=== PATIENT | male | born 1960 | race Two or more races ===

== ENCOUNTER 2020-05-03 06:09 | Day surgery (SDC) | payer OTHER ==
[2020-05-03] VITALS (9 sets, daily range): BP systolic 111–133; BP diastolic 70–77
[~2020-05-03] VITALS: Ht 167.6 cm; Wt 95.3 kg
[~2020-05-03 06:09] MED LIST: AMLODIPINE BESYL5 MG ORAL; IBUPROFEN600 M1 ORAL; MINOCYCLINE HC100 MG PO; PRILOSEC OTC20 MG ORAL; XANAX0.5 MG ORAL
--- NOTE | 2020-05-03 06:54 | Anethesia Preoperative Eval ---
Anesthesia Pre-op PMH/ROS General Date of Evaluation: May 03, 2020 Time of Evaluation: 06:50 Anesthesiologist: dorothy ASA Score: ASA 3 Mallampati Score Class I : Soft palate, uvula, fauces, pillars visible Class II: Soft palate, uvula, fauces visible Class III: Soft palate, base of uvula visible Class IV: Only hard plate visible Mallampati Classification: Class II Surgeon: anuj Diagnosis: gerd Surgical Procedure: egd Anesthesia History: none Social History: smoking - former smoker Family History: no anesthesia problems Allergies: Coded Allergies: No Known Allergies (Unverified , 04/28/20) Medications: see eMAR Patient NPO?: Yes Past Medical History Cardiovascular: Reports: HTN Gastrointestinal/Genitourinary: Reports: GERD Neurologic/Psychiatric: Reports: other - headache Hematology/Immune: Reports: other - covid-19 not detected Musculoskeletal/Integumentary: Reports: other - back pain Anesthesia Pre-op Phys. Exam Physician Exam Last Vital Signs Date Time Temp Pulse Resp B/P (MAP) Pulse Ox O2 Delivery O2 Flow Rate FiO2 05/03/20 06:34 97.3 67 18 133/77 99 Room Air Constitutional: NAD Neurologic: CN 2-12 intact Cardiovascular: RRR Respiratory: CTA Gastrointestinal: S/NT/ND Airway Exam Mallampati Score: Class II MO: limited Neck: flexible TMD: 2fb ROM: limited Anesthesia Pre-op A/P Labs Microbiology Date/Time Source Procedure Growth Status 04/29/20 05:45 Nasopharynx Coronavirus COVID-19 PCR ([facility]) - Final Complete Risk Assessment & Plan Assessment: asa3 Plan: mac Status Change Before Surgery: No Pre-Antibiotics Drug: Eda Clifford MD May 03, 2020 06:54
[2020-05-03] MEDS ORDERED: Atropine Inj 1mg/10ml Syr IVP PRN (07:00)
[2020-05-03] MEDS ORDERED: DiphenhydrAMINE 50mg/ml Inj IVP PRN (07:00)
[2020-05-03] MEDS ORDERED: LR 1000ml 1,000 ML IVLG SCH ×2 (07:00)
[2020-05-03] MEDS ORDERED: fentaNYL 100 mcg/2 mL IV PRN (07:00)
[2020-05-03] MEDS ORDERED: Midazolam 2mg/2ml Inj IVP PRN (07:00)
--- NOTE | 2020-05-03 07:20 | Short Stay Surgery H&P ---
History of Present Illness History of Present Illness Chief Complaint Abdominal pains and GERDs HPI Raul Scherer is a 59 year old male who was admitted on for GERD and abdominal pains Patient History Allergies: Coded Allergies: No Known Allergies (Unverified , 04/28/20) PAST MEDICAL HISTORY: (1) Crohns disease of small intestine (2) Hypertension (3) History of knee surgery Medication History Scheduled Amlodipine Besylate* (Amlodipine Besylate*), 5 MG ORAL DAILY, (Reported) Minocycline Hcl (Minocycline Hcl), 100 MG PO DAILY, (Reported) Omeprazole Magnesium (Prilosec Otc), 20 MG ORAL DAILY, (Reported) Scheduled PRN Ibuprofen* (Motrin*), 800 MG ORAL Q6H PRN for FOR PAIN, (Reported) Miscellaneous Medications Alprazolam* (Xanax*), 0.5 MG ORAL, (Reported) Review of Systems Cardiovascular: Reports: hypertension Respiratory: Reports: no symptoms Skeletal: Reports: trauma Gastrointestinal: Reports: gastro esophageal reflux disease Genitourinary: Reports: no symptoms Neurologic: Reports: no symptoms Endocrine: Reports: no symptoms Hematologic: Reports: no symptoms Physical Exam Vital Signs Last Vital Signs Date Time Temp Pulse Resp B/P (MAP) Pulse Ox O2 Delivery O2 Flow Rate FiO2 05/03/20 06:34 97.3 67 18 133/77 99 Room Air Skin: normal HENT: normal Heart: normal Lungs: normal Abdomen: abnormal Extremities: normal Genitourinary: normal Plan Plan of Care Upper Gi endoscopy with biopsy. Preop Interventions None. Summary of Findings See the reports Attestation Are the patient's medical conditions optimized for surgery? Attestation Response: yes Neli Shanks MD May 03, 2020 07:20
--- NOTE | 2020-05-03 07:21 | Pre-Procedure Note/Attestation ---
Pre-Procedure Note/Attestation Complete Prior to Procedure Planned Procedure: left Procedure Narrative: Examination of the Upper GI.tract via endoscopy and obtaining biopsies. Indications for Procedure Pre-Operative Diagnosis: R/O Gastritis, peptic ulcer, esophagitis. Attestation I attest that I discussed the nature of the procedure; its benefits; risks and complications; and alternatives (and the risks and benefits of such alternatives), prior to the procedure, with the patient (or the patient's legal international account representative). I attest that, if there was a reasonable possibility of needing a blood transfusion, the patient (or the patient's legal international account representative) was given the [facility] standardized written summary, pursuant to the Gregorio Angel Blood Safety Act ([place] Health and Safety Code # 1645, as amended). I attest that I re-evaluated the patient just prior to the surgery and that there has been no change in the patient's H&P, except as documented below: Neli Shanks MD May 03, 2020 07:21
[2020-05-03] MEDS ORDERED: LR 1000ml ONE (07:30)
[2020-05-03] MEDS ORDERED: Lidocaine 1% MPF 10mg/ml 5ml ONE (07:30)
--- NOTE | 2020-05-03 08:04 | Endoscopy Procedure Note ---
Endoscopy Procedure Note General Indication for Procedure: Abdomina/epigastric pain/GERDs Procedures Performed: EGD - mild inflammatory process in antral area consistent with minimal antritis; otherwise normal upper GI. endoscopy. Biopsies obtained from antrum and gastric body. Specimen: yes Pt Tolerated Procedure Well: Yes Estimated Blood Loss: none Anesthesia Anesthesiologist: Dr. Zapata Anesthesia: moderate sedation Medications Medication Given: see anesthesia record Inserted Devices Implant(s) used?: No Quality Quality of Bowel Preparation: Excellent Was there any complications?: No GI Core Measures 50 yrs or older w/o bx or poly: Not Applicable 10yrs. F/U recommended: Not Applicable If not recommended, why?: Med reason:<3 yrs.: System Reason:<3 yrs.: Neli Shanks MD May 03, 2020 08:04
--- NOTE | 2020-05-03 08:05 | Discharge Instructions ---
Discharge Instructions Discharge Instructions Follow up with: No follow up needed in office. Call to get printed report. For Congestive Heart Failure Reminder Report to your physician any weight gain of 5 pounds or more in one week. Neli Shanks MD May 03, 2020 08:05
--- NOTE | 2020-05-03 08:22 | Immediate Post-Op Evaluation ---
Immediate Post-Op Evalulation Immediate Post-Op Evalulation Procedure: egd w/bx Date of Evaluation: May 03, 2020 Time of Evaluation: 08:21 IV Fluids: 400ml lr Blood Products: none Estimated Blood Loss: negligible Blood Pressure Systolic: 113 Blood Pressure Diastolic: 71 Pulse Rate: 72 Respiratory Rate: 18 O2 Sat by Pulse Oximetry: 100 Temperature (Fahrenheit): 97.8 Pain Score (1-10): 0 Nausea: No Vomiting: No Complications none Patient Status: awake, reacts, patent Hydration Status: adequate Drug: Eda Clifford MD May 03, 2020 08:22
--- NOTE | 2020-05-03 08:23 | 48 Hour Post Anesthesia Eval ---
Post Anesthesia Evaluation Procedure: egd w/bx Date of Evaluation: May 03, 2020 Time of Evaluation: 08:22 Blood Pressure Systolic: 112 0: 73 Pulse Rate: 65 Respiratory Rate: 18 Temperature (Fahrenheit): 97.8 O2 Sat by Pulse Oximetry: 100 Airway: patent Nausea: No Vomiting: No Pain Intensity: 0 Hydration Status: adequate Cardiopulmonary Status: stable Mental Status/LOC: patient returned to baseline Post-Anesthesia Complications: none Follow-up care needed: N/A Eda Zapata MD May 03, 2020 08:23
--- NOTE | 2020-05-03 08:59 | Operative Note - Dictated ---
DATE OF OPERATION: 05/03/2020 SURGEON: Neli Shanks MD. PROCEDURE: Esophagogastroduodenoscopy with biopsy. PREOPERATIVE DIAGNOSIS: Epigastric pain, question of etiology rule out NSAID-induced gastropathy, peptic ulcer disease, esophagitis, gastritis, duodenitis. POSTOPERATIVE DIAGNOSIS: Evidence of mild inflammatory process in the antrum consistent with mild antritis, otherwise completely normal upper GI endoscopy. Biopsies were taken from antrum and mid body of the stomach. MEDICATION USED: Per Dr. Kim, anesthesiologist. INSTRUMENT: GIF Olympus upper GI video endoscope. DESCRIPTION OF PROCEDURE: The patient after arriving in the endoscopy unit, was told about risks and benefits of the procedure that he understood the risks and benefits and signed the informed consent. At this time, he was put on the left lateral decubitus position. After adequate IV sedation, the scope was gently passed through the cricopharyngeal area, was lodged into the upper esophagus and was gradually advanced towards gastroesophageal junction. The entire length of esophagus was completely normal. No evidence of inflammatory process, ulceration, stricture, exudate, etc. was found. GE junction was also found to be completely normal without any evidence of Munoz's mucosa or hiatal hernia. The scope at this time was advanced into the stomach. Gastric cavity was gradually examined from the fundus up to the antrum. Basically, most part of the gastric cavity looked completely with normal mucosal covering except in the area of the antrum, which there was mild erythema consistent with mild antritis. No tumors or polyps were found. No ulcers were noted. At this time, the biopsies from the antrum and another biopsy from gastric, mid gastric body was obtained. There were obtained and the scope was passed through the normal-looking pylorus. First and second portion of duodenum were also found to be completely normal. Finally, scope was pulled back into the stomach. A retroflexion maneuver was applied and the area of the gastroesophageal junction was examined in a retrograde fashion, which looked completely normal. At this time, the scope was pulled out and the procedure was terminated. The patient tolerated the procedure well and left the endoscopy room in a good condition. Neli Shanks M.D. DR: MARCO A JOB#: [id number] CC:
--- NOTE | 2020-05-03 09:00 | Pre-op HX & Phy Repo 2 SIG ---
DATE OF ADMISSION: 05/03/2020 HISTORY OF PRESENT ILLNESS: The patient is a 59-year-old [id number] injured worker who has been scheduled to undergo the procedure of upper GI area for further evaluation of his abdominal pain. The patient was seen prior to undergoing the procedure of upper GI endoscopy. The patient was seen in the office approximately a month and a half ago and is still complaining of having pain over the upper part of the abdomen. 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 He reports that the pain are moderately severe and for the control of the pain of the upper GI tract, which seems to be consistent with chronic acid reflux that has occurred subsequent to taking medications of nonsteroidal anti-inflammatory agents, he is still taking omeprazole 20 mg on a daily basis, which is somewhat helpful as well. The patient denies having any difficulty swallowing such as dysphagia, odynophagia, etc. There has been no nausea or vomiting or passing bright red blood in the stools or vomiting bright red blood as well. There has been no history of black stools. He denies having any diarrhea or constipation, though in the past he has been diagnosed to have Crohn disease which has been adequately controlled and followed by his primary caregivers and aircraft structural repair mechanic. He denies having any diarrhea or constipation at this time. He reports that he never had any other upper GI symptoms as such before being started on nonsteroidal anti-inflammatory agents, which occurred subsequent to his work injury as he had to take them because of the severe pain and is mostly in the form of ibuprofen 800 mg on a daily basis that still he takes along with occasional Tylenol for better control of pain. PAST MEDICAL HISTORY: As I mentioned, the patient has had history of Crohn disease. Also has had diagnosis of hypertension for which he is getting multiple medications at this time. He denies having any colitis or pancreatitis, pneumonitis, hepatitis, etc. He denies having diabetes. No thyroid conditions. PAST SURGICAL HISTORY: He has had history of meniscectomy on the right knee which was done through arthroscopic procedure some time in 2013. ALLERGIES: He has allergy for pollen and dust. FAMILY HISTORY: Basically nonsignificant. HABITS: He denies drinking alcohol or smoking cigarettes. MEDICATIONS: Present medications are omeprazole 20 mg, ibuprofen 800 mg, alprazolam 0.5 mg, minocycline 100 mg, and amlodipine 5 mg daily. REVIEW OF SYSTEMS: GENERAL: Basically, he denies having any headaches or chest pain. RESPIRATORY: No symptoms of shortness of breath or cough or hemoptysis. CARDIAC: He denies having any cardiovascular conditions or angina, palpitation, etc. MUSCULOSKELETAL: He only complains of experiencing pain over his right knee where he was injured. GENITOURINARY: He denies dysuria, pyuria, or hematuria. GASTROINTESTINAL: He is complaining of experiencing pain over the upper part of the abdomen. PHYSICAL EXAMINATION: GENERAL: At this time reveals alert and well-oriented, very pleasant gentleman, who does not seem to be in any acute distress. He does not speak Irish and the geophysical drafter in the hospital was used. He looks overweight. VITAL SIGNS: Blood pressure 133/77, pulse rate 67 per minute, respiratory rate 18 per minute, temperature 97.3. Oxygen saturation 99% on room air. HEENT: Normocephalic. Pupils are equal in size and reactive to light and accommodation. No visible jaundice. Buccal cavity, tongue midline, well hydrated. No ulcers. NECK: Supple. No JVD. Nontender. No masses. HEART: S1, S2 normal. Regular rhythm. No gallops or murmur. ABDOMEN: Soft with areas of tenderness mostly over the upper part of the abdomen noted. There is no organomegaly, no palpable mass. No rebound phenomenon. EXTREMITIES: No pretibial edema, cyanosis, or clubbing noted. SKIN: Nonsignificant. LYMPHATICS: Nonsignificant. INITIAL PREOPERATIVE DIAGNOSES: 1. Upper abdominal pain of uncertain etiology, mostly consistent with chronic gastroesophageal acid reflux; rule out NSAID-induced gastropathy such as peptic ulcer disease, duodenitis, gastritis, esophagitis. 2. History of bodily injury, work related. 3. Crohn disease, which is stable, nonindustrial. RECOMMENDATIONS: The applicant at this time seems to be quite stable to undergo the procedure of upper GI endoscopy for which he has been scheduled in. He understands the risks and benefits and will sign the consent. Said Christopher Shanks DR: TITI JOB#: [id number] CC:
== END 2020-05-03 09:25 | disposition home or self-care (01) ==
LOC: GAS 06:09
DX: R10.13 Epigastric pain (principal); K29.60 Other gastritis without bleeding; I10 Essential (primary) hypertension; K50.90 Crohn's disease, unspecified, without complications; Z79.899 Other long term (current) drug therapy; K21.9 Gastro-esophageal reflux disease without esophagitis; Z87.891 Personal history of nicotine dependence
CPT/HCPCS: 43239; 94003; J2704; J7120; U0004; 94150